=== PATIENT | female | born 1985 | race Caucasian/White ===

== ENCOUNTER 2017-12-17 23:24 | Emergency (ER) | payer BC ==
--- NOTE | 2017-12-18 00:29 | ER Document Report ---
ED GI/ - General Mode of Arrival: Ambulatory Information source: Patient TRAVEL OUTSIDE OF THE [place] IN LAST 30 DAYS: No <EZIO DENNISON - Last Filed: 12/18/17 04:16> <LISSA GUTIÉRREZ - Last Filed: 12/18/17 04:17> - General Chief Complaint: Abdominal Pain Stated Complaint: ABDOMINAL PAIN Time Seen by Provider: 12/18/17 00:23 Notes: 32 y.o female presents to the ED with abdominal pain of onset tonight as she was getting ready for bed. Pt reports that she initially thought her pain was due to gas and originated in her RUQ and lower abdomen but now is only to her RT lower abdomen and mildly to her RT sided back. Pt also reports some nausea but denies any vomiting. She also denies any diarrhea, blood in stools or fever. Pt denies ever having pain like this previously. She denies any medical issues, she denies any PSHx. Pt reports a family hx of mother with breast cancer and grandfather with DM. (EZIO DENNISON) - Related Data Allergies/Adverse Reactions: Penicillins Allergy (Mild, Verified 06/27/12 22:01) Hives Past Medical History - General Information source: Patient - Social History Smoking Status: Never Smoker Chew tobacco use (# tins/day): No Frequency of alcohol use: Occasional Drug Abuse: None Family History: DM - grandfather, Other - mother with breast cancer <EZIO DENNISON - Last Filed: 12/18/17 04:16> Review of Systems - Review of Systems Constitutional: See HPI. denies: Fever EENT: No symptoms reported Cardiovascular: No symptoms reported Respiratory: No symptoms reported Gastrointestinal: See HPI, Abdominal pain, Nausea. denies: Diarrhea, Vomiting, Blood streaked bowels, Black stools, Rectal bleeding Genitourinary: No symptoms reported Female Genitourinary: No symptoms reported Musculoskeletal: See HPI, Back pain Skin: No symptoms reported Hematologic/Lymphatic: No symptoms reported Neurological/Psychological: No symptoms reported -: Yes All other systems reviewed and negative <EZIO DENNISON - Last Filed: 12/18/17 04:16> Physical Exam <EZIO DENNISON - Last Filed: 12/18/17 04:16> <LISSA GUTIÉRREZ - Last Filed: 12/18/17 04:17> - Vital signs Vitals: Temp Pulse Resp BP Pulse Ox 98.1 F 80 20 111/60 99 12/17/17 23:29 12/17/17 23:29 12/17/17 23:29 12/17/17 23:29 12/17/17 23:29 - Notes Notes: PHYSICAL EXAM GENERAL: Alert, appears uncomfortable. HEAD: Normocephalic, atraumatic. EYES: Pupils equal, round, and reactive to light. Extraocular movements intact. ENT: Oral mucosa moist, tongue midline. NECK: Full range of motion. Supple. Trachea midline. LUNGS: Clear to auscultation bilaterally, no wheezes, rales, or rhonchi. No respiratory distress. HEART: Regular rate and rhythm. No murmurs, gallops, or rubs. ABDOMEN: Soft. RLQ TTP. Non-distended. Bowel sounds present in all 4 quadrants. No guarding, rebound, or rigidity. EXTREMITIES: Moves all 4 extremities spontaneously. No edema, radial and dorsalis pedis pulses 2/4 bilaterally. No cyanosis. NEUROLOGICAL: Alert and oriented x3. Normal speech. PSYCH: Normal affect, normal mood. SKIN: Warm, dry, normal turgor. No rashes or lesions noted. (EZIO DENNISON) Course - Laboratory Result Diagrams: 12/18/17 00:45 12/18/17 00:45 <EZIO DENNISON - Last Filed: 12/18/17 04:16> - Laboratory Result Diagrams: 12/18/17 00:45 12/18/17 00:45 <LISSA GUTIÉRREZ - Last Filed: 12/18/17 04:17> - Re-evaluation Re-evalutation: 12/18/17 01:56 CBC shows leukocytosis at 14.8, chemistries are grossly unremarkable, test is negative, urinalysis shows trace ketones but no signs of blood or infection. Given these laboratory studies, her history and physical exam I am concerned for possible appendicitis, patient will have IV and orally contrast a CAT scan performed. She was given 0.5 mg of Dilaudid IV for pain, pain is currently well controlled. She is n.p.o. and aware that she should not eat or drink anything at this time. 12/18/17 02:49 CT scan of the abdomen and pelvis reveals a 2.8 x 2.0 x 2.1 slightly complex dominant follicle with single septation noted in the right ovary, slightly greater than expected free fluid in the pelvis, may be due to partially ruptured ovarian cyst on the right. Radiology recommends pelvic ultrasound in 6 -12 weeks to verify that this resolves. No pelvic adenopathy, appendix is normal-appearing aside from appendicoliths. Given these findings patient will be discharged to home, given a [place] dispense pack to help control her pain overnight and into the morning, asked to follow- up with UR COORDINATOR as an outpatient in 6-12 weeks for a follow-up ultrasound and requested to return to the emergency department sooner for fevers, worsening pain or any new or concerning symptoms. (LISSA GUTIÉRREZ) - Vital Signs Vital signs: Temp Pulse Resp BP Pulse Ox 98.2 F 82 16 116/69 100 12/18/17 03:06 12/18/17 03:06 12/18/17 03:06 12/18/17 03:06 12/18/17 03:06 - Laboratory Laboratory results interpreted by me: 12/18/17 12/18/17 12/18/17 00:45 00:45 00:45 WBC 14.8 H Seg Neutrophils % 86.2 H Lymphocytes % 8.8 L Absolute Neutrophils 12.7 H Glucose 115 H Urine Ketones TRACE H Discharge <EZIO DENNISON - Last Filed: 12/18/17 04:16> <LISSA GUTIÉRREZ - Last Filed: 12/18/17 04:17> - Discharge Clinical Impression: Right lower quadrant abdominal pain, Right ovarian cyst Condition: Stable Disposition: HOME, SELF-CARE Additional Instructions: Today in your CAT scan there is no sign of appendicitis. You do have an ovarian cyst on your right ovary, there are some abnormalities to this cyst. It appears to have partially ruptured which is likely what is causing your pain. You will want to have an ultrasound performed of your ovary in 6-12 weeks to ensure that this cyst has gone away. Should you develop fevers, worsening pain, dizziness or any new or concerning symptoms please return to the emergency department. Please use ibuprofen (Motrin or Advil) 600-800 mg every 8 hours as needed for pain or fever. You may also use acetaminophen (Tylenol) 1000 mg every 4-6 hours as needed for pain or fever. Please be aware that many medications contain acetaminophen, do not exceed a total of 1000 mg of acetaminophen every 6 hours. Forms: Parent Work Note, Return to Work Referrals: ALINA BAIG CNM [CERTIFIED NURSE CUSTOMER CONSULTING MANAGER] - Follow up as needed Scribe Attestation: 12/18/17 04:17 I personally performed the services described in the documentation, reviewed and edited the documentation which was dictated to the scribe in my presence, and it accurately records my words and actions. (LISSA GUTIÉRREZ) Scribe Documentation - Scribe Written by Daniela:: Daniela Schwab 12/18/17 0026 acting as scribe for :: Damaris <EZIO DENNISON - Last Filed: 12/18/17 04:16>
[2017-12-18] MEDS ORDERED: HYDROMORPHONE HCL INJ/PF 2 MG/ML AMPULE IV ONE (00:30)
[2017-12-18 00:53] LABS: ABSOLUTE EOSINOPHILS # (AUTO) 0.1 10^3/uL (0.0-0.6); ABSOLUTE LYMPHOCYTES (AUTO) 1.3 10^3/uL (0.5-4.7); ABSOLUTE MONOCYTES (AUTO) 0.7 10^3/uL (0.1-1.4); ABSOLUTE NEUT (AUTO) 12.7 10^3/uL (1.7-8.2); BASOPHILS % (AUTO) 0.1 % (0-2); EOSINOPHILS % (AUTO) 0.4 % (0-6); HEMATOCRIT 42.1 % (36.0-47.0); HEMOGLOBIN 14.3 g/dL (12.0-15.5); LYMPHOCYTES % (AUTO) 8.8 % (13-45); MEAN CORPUSCULAR HEMOGLOBIN 29.5 pg (27.0-33.4); MEAN CORPUSCULAR VOLUME 87 fl (80-97); MONOCYTES % (AUTO) 4.5 % (3-13); PLATELET COUNT 195 10^3/uL (150-450); RED BLOOD COUNT 4.85 10^6/uL (3.72-5.28); RED CELL DISTRIBUTION WIDTH 12.3 % (11.5-14.0); SEGMENTED NEUTROPHILS % (AUTO) 86.2 % (42-78); TOTAL CELLS COUNTED % (AUTO) 100 %; WHITE BLOOD COUNT 14.8 10^3/uL (4.0-10.5)
[2017-12-18 01:05] LABS: ALANINE AMINOTRANSFERASE 25 U/L (9-52); ALBUMIN 4.6 g/dL (3.5-5.0); ALKALINE PHOSPHATASE 71 U/L (38-126); ANION GAP 10 (5-19); ASPARTATE AMINO TRANSFERASE 16 U/L (14-36); BILIRUBIN,DIRECT 0.2 mg/dL (0.0-0.4); BILIRUBIN,TOTAL 0.4 mg/dL (0.2-1.3); BLOOD UREA NITROGEN 19 mg/dL (7-20); CALCIUM 9.8 mg/dL (8.4-10.2); CARBON DIOXIDE 28 mmol/L (22-30); CHLORIDE 104 mmol/L (98-107); GLUCOSE 115 mg/dL (75-110); POTASSIUM 4.1 mmol/L (3.6-5.0); TOTAL PROTEIN 7.1 g/dL (6.3-8.2)
[2017-12-18 01:26] LABS: APPEARANCE,URINE CLEAR; BILIRUBIN,URINE NEGATIVE (NEGATIVE); COLOR,URINE STRAW; GLUCOSE, URINE NEGATIVE (NEGATIVE); KETONES,URINE TRACE mg/dL (NEGATIVE); LEUKOCYTE ESTERASE,URINE NEGATIVE (NEGATIVE); NITRITE,URINE NEGATIVE (NEGATIVE); PROTEIN,URINE NEGATIVE (NEGATIVE); URINE SPECIFIC GRAVITY 1.005; UROBILINOGEN,URINE NEGATIVE mg/dL (<2.0)
[2017-12-18] MEDS ORDERED: RINGERS SOLUTION,LACTATED 1,000 ML IV ONE (01:56)
[2017-12-18] MEDS ORDERED: NORMAL SALINE 1000 ML 1,000 ML IV ONE (02:04)
--- NOTE | 2017-12-18 02:37 | RADIOLOGY REPORT (SQ) ---
CT abdomen and pelvis with contrast on 12/18/2017 at 2:10 AM CLINICAL INDICATION: Right lower quadrant pain TECHNIQUE: Multiple axial images are obtained throughout the abdomen and pelvis following the administration of IV and oral contrast. This exam was performed according to our departmental dose-optimization program, which includes automated exposure control, adjustment of the mA and/or kV according to patient size and/or use of iterative reconstruction technique. Total DLP is 487.34 mGy*cm. COMPARISON: None FINDINGS: Abdomen: The lung bases are clear. The solid abdominal organs are unremarkable. There is no abdominal adenopathy. There is no free fluid or free air within the abdomen. The abdominal portion of the GI tract is unremarkable. Pelvis: There is a 2.8 x 2.0 x 2.1 cm slightly complex dominant follicle with single septation noted in the right ovary. There is slightly greater than expected free fluid in the pelvis. The findings may be related to a partially ruptured right ovarian cyst. Due to the slightly complex nature of this would recommend ultrasound follow-up in 6-12 weeks to verify this resolves. There is no pelvic adenopathy. Appendicoliths are noted within an otherwise normal-appearing appendix. Pelvic portion of the GI tract is otherwise unremarkable. No bony abnormality is noted. IMPRESSION: 1. Findings may be related to a partially ruptured right ovarian cyst, due to the slightly complex nature of the 2.8 cm dominant follicle in the right ovary would recommend ultrasound follow-up in 6-12 weeks to verify this resolves. 2. Otherwise no acute abnormality.
[2017-12-18] MEDS ORDERED: HYDROCODONE/ACETAMINOPHEN 5-325 MG (6 TAB/ER DISP) PO PRN (02:51)
[2017-12-18 03:12] VITALS: BP 116/69
== END 2017-12-18 03:12 | disposition home or self-care (01) ==
LOC: ER 23:24
DX: N83.201 Unspecified ovarian cyst, right side (principal); R10.31 Right lower quadrant pain; R11.0 Nausea; M54.9 Dorsalgia, unspecified; Z88.0 Allergy status to penicillin; D72.829 Elevated white blood cell count, unspecified
CPT/HCPCS: 99284; 96374; 36415; 84703; 85025; 80053; 81001; 74177; J1170; J7030

== ENCOUNTER → 2018-10-13 | Outpatient (CLI) | payer BC ==
[2018-10-13 15:11] LABS: BACTERIA (WET MOUNT) 4+ BACTERIA SEEN; EPITHELIALS (WET MOUNT) 4+ EPITHELIALS SEEN; T.VAGINALIS (WET MOUNT) NO TRICHOMONAS SEEN; WBCS (WET MOUNT) 4+ WBCS SEEN; YEAST (WET MOUNT) NO YEAST SEEN
[2018-10-13 16:41] LABS: CHLAM PCR NOT DETECTED (NOT DETECT); GON PCR NOT DETECTED (NOT DETECT)
== END ==
LOC: LAB 15:02
PROVIDERS: ATTEND Nurse Practitioner Family
DX: N89.8 Other specified noninflammatory disorders of vagina (principal); N39.0 Urinary tract infection, site not specified
CPT/HCPCS: 87086; 87210; 87250; 87491; 87591